=== PATIENT | female | born 1945 | race Hispanic/Latino ===

== ENCOUNTER 2018-06-14 23:15 | Emergency (ER) | payer MEDICARE ==
[~2018-06-14] VITALS: Ht 157.5 cm; Wt 59.0 kg
[~2018-06-14 23:15] MED LIST: ASPIRIN PO; BYSTOLIC10 MG PO; GLIPIZIDE10 MG PO; GLYBURIDE5 MG PO; LISINOPRIL PO; METFORMIN HCL1000 MG PO; METFORMIN PO; NORVASC5 MG PO; PANTOPRAZOLE SO40 MG PO; ZOCOR20 MG PO; ZOFRAN ODT4 MG PO
== END 2018-06-15 03:30 | disposition home or self-care (01) ==
LOC: ER 23:15
DX: H60.503 Unspecified acute noninfective otitis externa, bilateral (principal); E11.9 Type 2 diabetes mellitus without complications; E78.5 Hyperlipidemia, unspecified; K21.9 Gastro-esophageal reflux disease without esophagitis; I10 Essential (primary) hypertension; Z79.84 Long term (current) use of oral hypoglycemic drugs; Z79.82 Long term (current) use of aspirin
CPT/HCPCS: 99282